=== PATIENT | female | born 1975 | race Two or more races ===

== ENCOUNTER 2024-07-17 15:28 | Emergency (ER) | payer OTHER ==
[~2024-07-17] VITALS: Ht 157.5 cm; Wt 58.5 kg
[2024-07-17] MEDS ORDERED: PAXIL CR25 MG (15:34)
[2024-07-17] MEDS ORDERED: BUSPIRONE HCL10 MG (15:35)
[2024-07-17] MEDS ORDERED: ORPHENADRINE CITRATE 30 MG/ML AMPUL IM STA (16:51)
[2024-07-17] MEDS ORDERED: KETOROLAC TROMETHAMINE 30 MG VIAL IM STA (16:51)
[2024-07-17] MEDS ORDERED: DICLOFENAC POTA50 MG PO (18:55)
[2024-07-17] MEDS ORDERED: ZANAFLEX4 M1 PO (18:55)
== END 2024-07-17 19:07 | disposition home or self-care (01) ==
LOC: ER 15:29
DX: M41.35 Thoracogenic scoliosis, thoracolumbar region (principal)